=== PATIENT | male | born 1960 | race Caucasian/White ===

== ENCOUNTER → 2016-08-04 | Outpatient (CLI) | payer OTHER ==
[~2016-08-04] MED LIST: DICL-86 PO; ROBA750T3 PO; TRAM50 PO; Z.0.NO CURRENT MEDS
== END ==
LOC: HORT 11:26
PROVIDERS: ATTEND Nurse Practitioner Family
DX: Z46.89 Encounter for fitting and adjustment of other specified devices (principal); S82.52XD Displaced fracture of medial malleolus of left tibia, subsequent encounter for closed fracture with routine healing; X58.XXXD Exposure to other specified factors, subsequent encounter
CPT/HCPCS: L2114

== ENCOUNTER 2017-10-23 16:06 | Emergency (ER) | payer OTHER ==
[~2017-10-23] VITALS: Ht 185.4 cm; Wt 84.5 kg
[2017-10-23 16:09] VITALS: BP 118/60; PULSE 76; RESP 16; TEMP 98.3; O2SAT 97
[2017-10-23] MEDS ORDERED: PERC10TA27 PO (16:15)
[2017-10-23] MEDS ORDERED: BACT800T5 PO (17:12)
--- NOTE | 2017-10-23 17:13 | PD ---
HPI Chief Complaint: Skin Problem Time Seen by Provider: 16:39 Travel History International Travel<30 days: No Contact w/Intl Traveler<30days: No Traveled to known affect area: No History of Present Illness HPI This is a 57-year-old male here with skin infection to the right wrist present for 3 days. Denies fever chills. Reports the area is pruritic and painful. No injury or trauma. Symptom severity is moderate. PFSH Past Medical History Medical History: Denies Significant Hx Hx Anticoagulant Therapy: No Diabetes: No Hepatitis: Yes (H/O HEP C) Social History Alcohol Use: No (DENIES) Tobacco Use: Yes (05/23 PPD) Substance Use: No Allergies-Medications (Allergen,Severity, Reaction): Coded Allergies: No Known Allergies (Verified Adverse Reaction, Unknown, 10/23/17) Reported Meds & Prescriptions Reported Meds & Active Scripts Active Bactrim DS (Sulfamethoxazole-Trimethoprim) 800-160 Mg Tab 1 Tab PO BID Reported Percocet (Oxycodone-Acetaminophen) 10-325 mg Tab 1 Tab PO BID Review of Systems Except as stated in HPI: all other systems reviewed are Neg General / Constitutional: No: Fever Physical Exam Narrative GENERAL: Alert and well-appearing 49-year-old male SKIN: Warm and dry. 3 cm area of erythema with small pustules. No induration or fluctuance. No lymphangitis. HEAD: Normocephalic. EYES: No scleral icterus. No injection or drainage. NECK: Supple CARDIOVASCULAR: Regular rate and rhythm without murmurs, gallops, or rubs. RESPIRATORY: Breath sounds equal bilaterally. No accessory muscle use. GASTROINTESTINAL: Abdomen soft, non-tender, nondistended. MUSCULOSKELETAL: No cyanosis, or edema. Can freely move the wrist. Data Data Last Documented VS Vital Signs Date Time Temp Pulse Resp B/P (MAP) Pulse Ox O2 Delivery O2 Flow Rate FiO2 10/23/17 16:09 98.3 76 16 118/60 (79) 97 MDM Medical Decision Making Medical Screen Exam Complete: Yes Emergency Medical Condition: Yes Differential Diagnosis Superficial skin infection, impetigo, contact dermatitis Narrative Course This is a 57-year-old male with superficial skin infection to the right wrist the last 3 days. He is nontoxic appearing. He will be treated with Bactrim. Instructed to take Benadryl as needed for itching. Follow-up his primary doctor. Diagnosis Primary Impression: Superficial skin infection Referrals: Primary Care Physician Additional Instructions: Medication as directed. Benadryl as needed for itching. Follow-up with her primary doctor. Scripts Sulfamethoxazole-Trimethoprim (Bactrim DS) 800-160 Mg Tab 1 TAB PO BID for Infection, #20 TAB 0 Refills Prov: Lilliana Tao 10/23/17 Disposition: 01 DISCHARGE HOME Condition: Stable Lilliana Tao Oct 23, 2017 17:13
== END 2017-10-23 17:28 | disposition home or self-care (01) ==
LOC: PHEFT 16:06
DX: L08.9 Local infection of the skin and subcutaneous tissue, unspecified (principal); B19.20 Unspecified viral hepatitis C without hepatic coma; F17.200 Nicotine dependence, unspecified, uncomplicated
CPT/HCPCS: 99283

== ENCOUNTER 2017-10-31 13:11 | Emergency (ER) | payer MEDICARE, OTHER ==
[~2017-10-31] VITALS: Ht 185.4 cm; Wt 83.0 kg
[~2017-10-31 13:11] MED LIST changes: +BACT800T5 PO; -DICL-86 PO; +PERC10TA27 PO; -ROBA750T3 PO; -TRAM50 PO; -Z.0.NO CURRENT MEDS
[2017-10-31 13:15] VITALS: BP 122/57; PULSE 75; RESP 16; TEMP 97.4; O2SAT 96
[2017-10-31] MEDS ORDERED: PERM5CRE11 TOPICAL (14:03)
[2017-10-31] MEDS ORDERED: CEPH-460 PO (14:03)
[2017-10-31] MEDS ORDERED: HYDR2.5O TOPICAL (14:03)
--- NOTE | 2017-10-31 14:04 | PD ---
HPI Chief Complaint: Skin Problem Time Seen by Provider: 13:37 Travel History International Travel<30 days: No Contact w/Intl Traveler<30days: No Traveled to known affect area: No History of Present Illness HPI 57-year-old male here with a rash to his right wrist which has been present for several weeks. He is convinced this is scabies by the research she has done on the Internet. He denies fever chills. He was previously put on Bactrim and reports no symptom improvement. He denies fever chills. The rash has not spread and there are no associating symptoms. Symptom severity is moderate. PFSH Past Medical History Medical History: Denies Significant Hx Hx Anticoagulant Therapy: No Diabetes: No Diminished Hearing: No Hepatitis: Yes (H/O HEP C) Tetanus Vaccination: < 5 Years Influenza Vaccination: No Social History Alcohol Use: No (DENIES) Tobacco Use: Yes (/ PPD) Substance Use: No Allergies-Medications (Allergen,Severity, Reaction): Coded Allergies: No Known Allergies (Verified Adverse Reaction, Unknown, 10/23/17) Reported Meds & Prescriptions Reported Meds & Active Scripts Active Elimite Topical (Permethrin) 5% Cream 1 Applic TOPICAL ONCE Hydrocortisone Topical 2.5% Oint 1 Applic TOPICAL BID Keflex (Cephalexin) 500 Mg Capsule 500 Mg PO Q6H 7 Days Reported Percocet (Oxycodone-Acetaminophen) 10-325 mg Tab 1 Tab PO BID Review of Systems Except as stated in HPI: all other systems reviewed are Neg General / Constitutional: No: Fever Eyes: No: Visual changes HENT: No: Headaches Cardiovascular: No: Chest Pain or Discomfort Respiratory: No: Shortness of Breath Gastrointestinal: No: Abdominal Pain Genitourinary: No: Dysuria Physical Exam Narrative GENERAL: Alert and well-appearing 57-year-old male SKIN: Approximately 4 cm area of an erythematous plaque with well demarcated areas. The skin is dry and flaking and oozing small amount of clear yellow fluid. No surrounding cellulitis, lymphangitis. No fluctuance or induration. HEAD: Normocephalic. EYES: No injection or drainage. NECK: Supple CARDIOVASCULAR: Regular rate and rhythm without murmurs, gallops, or rubs. RESPIRATORY: Breath sounds equal bilaterally. No accessory muscle use. GASTROINTESTINAL: Abdomen soft, non-tender, nondistended. MUSCULOSKELETAL: No cyanosis, or edema. Data Data Last Documented VS Vital Signs Date Time Temp Pulse Resp B/P (MAP) Pulse Ox O2 Delivery O2 Flow Rate FiO2 10/31/17 13:15 97.4 75 16 122/57 (78) 96 Orders Orders Wound Culture And Gram Stain (10/31/17 14:04) MDM Medical Decision Making Medical Screen Exam Complete: Yes Emergency Medical Condition: Yes Differential Diagnosis Eczema versus contact dermatitis versus impetigo versus scabies Narrative Course 57-year-old male here with a rash to the right wrist with what appears to be a secondary infection. Patient strongly feels this is scabies because of the research he has done on the Internet. The rash is localized to the wrist only and well demarcated and has an appearance of eczema/dermatitis with possible secondary infection. Diagnosis Primary Impression: Rash Referrals: Primary Care Physician Additional Instructions: Continue Benadryl as directed Scripts Permethrin Topical (Elimite Topical) 5% Cream 1 APPLIC TOPICAL ONCE for Scabies, #1 TUBE 0 Refills Prov: Lilliana Tao 10/31/17 Hydrocortisone Topical (Hydrocortisone Topical) 2.5% Oint 1 APPLIC TOPICAL BID for Rash/Inflammation, #30 GM 0 Refills Prov: Lilliana Tao 10/31/17 Cephalexin (Keflex) 500 Mg Capsule 500 MG PO Q6H for Infection for 7 Days, #28 CAP 0 Refills Prov: Lilliana Tao 10/31/17 Disposition: 01 DISCHARGE HOME Condition: Stable Lilliana Tao Oct 31, 2017 14:03
== END 2017-10-31 14:18 | disposition home or self-care (01) ==
LOC: PHEFT 13:11
DX: R21 Rash and other nonspecific skin eruption (principal); F17.200 Nicotine dependence, unspecified, uncomplicated; Z86.19 Personal history of other infectious and parasitic diseases
CPT/HCPCS: 86403; 87070; 87205; 99283